=== PATIENT | male | born 1955 | race African-American/Black ===

== ENCOUNTER 2018-05-05 11:33 | Emergency (ER) | payer OTHER ==
[~2018-05-05] VITALS: Ht 182.9 cm; Wt 90.7 kg
[2018-05-05 11:38] VITALS: BP 148/88
--- NOTE | 2018-05-05 11:40 | NUR ---
ED Nurse Note: Patient biba c/o of a toothache, patient complains of 10/10 pain that is located on the bottom right of his teeth. patient states that it started last night. patient is alert and oriented x4, ambulatory with a steady gait, VSS. Patient does have dialysis Thursday, states that he missed it yesterday
--- NOTE | 2018-05-05 13:23 | NUR ---
ED Nurse Note: Gave telephone report to Nurse Mag[facility]. Waiting for transport.
[2018-05-05] MEDS ORDERED: AMOXICILLIN500 MG ORAL (13:24)
[2018-05-05 15:09] VITALS: BP 145/85
[2018-05-05 15:36] VITALS: BP 140/88
--- NOTE | 2018-05-05 15:37 | NUR ---
ER DISCHARGE NOTE: Patient is cleared to be discharged per ERMD, pt is aox4, on room air, with stable vital signs. pt was given dc and prescription instructions, pt was able to verbalize understanding, pt id band removed without complications. pt is able to ambulate with steady gait. pt took all belongings. Left via [facility].
--- NOTE | 2018-05-05 15:37 | NUR ---
ED Nurse Note: Gave report to [facility].
--- NOTE | 2018-05-06 15:00 | Emergency Room Report ---
History of Present Illness General Chief Complaint: Toothache Source: Patient Present Illness HPI 62-year-old male presents ED for evaluation. Patient brought in from halfway facility for tooth pain. Started last night. Pain is throbbing, 10 out of 10, nonradiating. Denies fevers or chills. Denies any neck stiffness. Patient is a dialysis patient. His compliant with his dialysis. Denies chest pain or shortness of breath. No other aggravating relieving factors. Denies any other associated symptoms Allergies: Coded Allergies: TETANUS IMMUNE GLOBULIN (Verified Allergy, Unknown, 05/05/18) Patient History Past Medical History: HTN, renal disease, dialysis Past Surgical History: none Pertinent Family History: none Social History: Denies: smoking, alcohol use, drug use Immunizations: UTD Reviewed Nursing Documentation: PMH: Agreed; PSxH: Agreed Nursing Documentation-PMH Past Medical History: No History, Except For Hx Cardiac Problems: Yes - Hyperkalemia Hx Hypertension: Yes Hx Dialysis: Yes - [facility] T-Th-Sat Review of Systems All Other Systems: negative except mentioned in HPI Physical Exam Vital Signs Date Time Temp Pulse Resp B/P (MAP) Pulse Ox O2 Delivery O2 Flow Rate FiO2 05/05/18 11:34 98.8 78 18 148/88 99 Nasal Cannula 2.0 Sp02 EP Interpretation: reviewed, normal General Appearance: no apparent distress, alert, GCS 15, non-toxic Head: normocephalic, atraumatic Eyes: bilateral eye normal inspection, bilateral eye PERRL ENT: hearing grossly normal, no angioedema, normal voice, other - multiple dental caries to R lower jaw. no abscess Neck: full range of motion, supple/symm/no masses Respiratory: chest non-tender, lungs clear, normal breath sounds, speaking full sentences Cardiovascular #1: regular rate, rhythm, no edema Cardiovascular #2: 2+ carotid (R), 2+ carotid (L), 2+ radial (R), 2+ radial (L) , 2+ dorsalis pedis (R), 2+ dorsalis pedis (L) Gastrointestinal: normal bowel sounds, non tender, soft, non-distended, no guarding, no rebound Rectal: deferred Genitourinary: normal inspection, no CVA tenderness Musculoskeletal: back normal, gait/station normal, normal range of motion, non- tender Neurologic: alert, oriented x3, responsive, motor strength/tone normal, sensory intact, speech normal Psychiatric: judgement/insight normal, memory normal, mood/affect normal, no suicidal/homicidal ideation Reflexes: 3+ bicep (R), 3+ bicep (L), 3+ tricep (R), 3+ tricep (L), 3+ knee (R) , 3+ knee (L) Skin: normal color, no rash, warm/dry, well hydrated Lymphatic: no adenopathy Medical Decision Making Diagnostic Impression: Primary Impression: Toothache ER Course 62-year-old male presents ED complaining of tooth pain. Cracked tooth, dental abscess, cavity Patient placed on stretcher. After initial history, physical exam reveals a male in no distress. On exam there is multiple dental caries especially in the right lower jaw. No fluctuance or abscess noted. Given amoxicillin here. Explained to patient that he needs to see dentist as outpatient. He agrees plan. Patient be safely discharged back to halfway facility. Patient is dialysis patientwe'll give renal dosing of 500 mg twice a day for 5 days (Discussed with Dr Shin) Diagnosis- toothache Stable and discharged to SNF prescription for amoxicillin. Instructed to see dentist as a walk-in this week. Return to ED if symptoms recur or worse Last Vital Signs Date Time Temp Pulse Resp B/P (MAP) Pulse Ox O2 Delivery O2 Flow Rate FiO2 05/05/18 15:36 98.4 75 22 140/88 99 Nasal Cannula 2.0 Status: improved Disposition: XFER SNF Condition: Stable Scripts Amoxicillin* (AMOXIL*) 500 Mg Capsule 500 MG ORAL BID for 5 Days, CAP Prov: Jesse Chery MD 05/05/18 Referrals: [facility],REFERRING (PCP) Patient Instructions: Dental Pain Jesse Chery MD May 06, 2018 15:00
== END 2018-05-05 15:38 ==
LOC: EDBD 11:33 → EDUNIT# 11:33 → EMR 12:00
DX: K08.89 Other specified disorders of teeth and supporting structures (principal); I12.0 Hypertensive chronic kidney disease with stage 5 chronic kidney disease or end stage renal disease; N18.6 End stage renal disease; Z99.2 Dependence on renal dialysis
CPT/HCPCS: 99282